=== PATIENT | female | born 1985 | race African-American/Black ===

== ENCOUNTER 2019-03-08 06:13 | Inpatient (IN) | payer OTHER ==
[2019-03-07 12:06] VITALS: BMI 18.2
[2019-03-08] MEDS ORDERED: BUPIVACAINE LIPOSOME/PF (EXPAREL) 266 MG/20 ML VIAL ONE (07:19)
[2019-03-08] MEDS ORDERED: BENZOIN/ALOE VERA/STORAX/TOLU 58 ML BOTTLE ONE (07:20)
[2019-03-08] MEDS ORDERED: BUPIVACAINE HCL/PF 0.25% (2.5MG/ML) 10 ML VIAL ONE (07:20)
[2019-03-08] MEDS ORDERED: THROMBIN (BOVINE) 5,000 UNIT VIAL TP ONE ×3 (07:20→09:57)
[2019-03-08] MEDS ORDERED: HEPARIN NA (PORCINE) 5,000 UNITS/ML 1ML VIAL ONE (07:24)
[2019-03-08] MEDS ORDERED: LIDOCAINE HCL/PF 2% SDV 5ML VIAL ONE (07:55)
[2019-03-08] MEDS ORDERED: ROCURONIUM BROMIDE 50 MG/5 ML SYRINGE ONE (07:55)
[2019-03-08] MEDS ORDERED: PROPOFOL 20 ML ONE ×13 (07:55→08:54)
[2019-03-08] MEDS ORDERED: ceFAZolin SODIUM 1 GM VIAL ONE ×2 (07:55→14:58)
[2019-03-08] MEDS ORDERED: morphine SULFATE/PF 0.5 MG/ML (2cc Syringe - QUVA) ONE (07:55)
[2019-03-08] MEDS ORDERED: MIDAZOLAM HCL 2 MG/2 ML SINGLE DOSE VIAL ONE (07:56)
[2019-03-08] MEDS ORDERED: VANCOMYCIN 1,000 MG VIAL (RESTRICTED TO ID ONLY) ONE (07:58)
[2019-03-08] MEDS ORDERED: TRANEXAMIC ACID 1000 MG/10 ML VIAL ONE ×2 (07:58→10:09)
[2019-03-08] MEDS ORDERED: FLU VACCINE QUAD 60 MCG/0.5 ML (MDV 19-20) IM ONE (08:00)
[2019-03-08] MEDS ORDERED: DEXAMETHASONE SOD PHOSPHATE 4 MG/1 ML VIAL ONE (08:05)
[2019-03-08] MEDS ORDERED: SUCCINYLCHOLINE CHLORIDE 200 MG/10 ML SYRINGE ONE (08:25)
[2019-03-08] MEDS ORDERED: ceFAZolin SODIUM 1 GM VIAL IVPB ONE (08:30)
[2019-03-08] MEDS ORDERED: VANCOMYCIN 1,000 MG VIAL (RESTRICTED TO ID ONLY) IVPB ONE (08:48)
[2019-03-08] MEDS ORDERED: ONDANSETRON 4 MG/2 ML VIAL ONE (09:53)
[2019-03-08] MEDS ORDERED: NEOSTIGMINE METHYLSULFATE 0.5 MG/1 ML - 10 ML MDV ONE (10:31)
[2019-03-08] MEDS ORDERED: BUPIVACAINE HCL/PF 0.5% (5 MG/ML) 30 ML VIAL IJ ONE (10:52)
[2019-03-08] MEDS ORDERED: BUPIVACAINE LIPOSOME/PF (EXPAREL) 266 MG/20 ML VIAL NR ONE (10:53)
[2019-03-08] MEDS ORDERED: MEPERIDINE HCL 25 MG/ML VIAL ONE (11:40)
[2019-03-08] MEDS ORDERED: ONDANSETRON 4 MG/2 ML VIAL IVPUSH PRN (12:13)
[2019-03-08] MEDS ORDERED: HYDROmorphone HCl 2 MG/ML VIAL IVPUSH ONE ×2 (12:30→12:50)
--- NOTE | 2019-03-08 12:31 | PN ---
Progress Note (short form) - Note Progress Note: 33F s/p removal of hardware L4-S1, inspection of fusion mass, L4-S1 revision laminectomies, L4-S1 posterior in situ spinal fusion POD #0. -Admit to ICU post-op. -Pain control: NO NSAID's; patient received intra-op paraspinal muscle block w/ Exparel; OK to use SNAKER DRIVING HORSES if needed; transition to oral analgesia post-op. -f/u Neurology rec's (Dr. Bradford) re: intra-op myoclonic jerks; ? obtain MRI brain? -DVT PPx: -Mechanical only: PAUL's, SCD's. -Chemical: None. -Incentive spirometry q15 min. -Advance diet as tolerated. -Castañeda care; d/c when ambulating. -Post-op Ancef x 3 doses. -PT/OT/Rehab, OOB. -WBAT B/L LE. -No bending, lifting (>5 lbs), or twisting for 9-12 months. -Care per ICU & medical hospitalist teams. -Discharge planning: f/u 7-10 days after discharge at [facility] [place] office; call for appointment; . -Will follow. Rc Matos MD (Orthopaedic Surgery).
--- NOTE | 2019-03-08 12:36 | OP ---
Operative Note - Note: Operative Date: 03/08/19 Pre-Operative Diagnosis: Symptomatic lumbar spinal hardware Operation: 1. Removal of lumbar spine hardware. 2. Inspection of fusion mass. 3. Revision laminectomies L4-S1. 4. Posterior arthrodesis L4-S1. 5. Bone autograft. 6. Bone allograft. 7. Bone marrow harvest. 8. Complex wound closure Post-Operative Diagnosis: Same as Pre-op Surgeon: Rc Matos Plant Electrical Engineer: Ismael Matos Anesthesiologist/ASSOCIATE TRAINER: Demetra Martinez Anesthesia: General Specimens Removed: L4-S1 hardware Estimated Blood Loss (mls): 200 Blood Volume Replaced (mls): 70 (Cell Saver) Fluid Volume Replaced (mls): 2,200 (Crystalloid) Operative Report Dictated: Yes
[2019-03-08] MEDS ORDERED: HYDROmorphone HCL CARPU-JECT 2 MG/1 ML DISP.SYRIN IVPB ONE (12:40)
[2019-03-08] MEDS ORDERED: ACETAMINOPHEN 1000 MG/100 ML VIAL (NON FORMULARY) IVPB PRN (12:41)
[2019-03-08] MEDS ORDERED: HYDROmorphone HCl 2 MG/ML VIAL ONE (12:46)
[2019-03-08] MEDS ORDERED: ACETAMINOPHEN 1000 MG/100 ML VIAL (NON FORMULARY) IVPB ONE (13:10)
--- NOTE | 2019-03-08 13:41 | OP ---
DATE OF OPERATION: DATE OF DICTATION: 03/08/2019 SURGEON: Rc Matos MD BILLING ANALYST: Ismael Matos MD PREOPERATIVE DIAGNOSIS: Recurrent radiculopathy due to stenosis L5-S1 with associated segmental instability and possible pseudoarthrosis. POSTOPERATIVE DIAGNOSIS: Spinal stenosis with failed hardware. OPERATIONS PERFORMED: 1. Removal of hardware, L4, 5, S1. 2. Inspection of fusion mass. 3. Revision laminectomy and neurolysis, L4, 5, S1 both left and right hand side. 4. Posterolateral arthrodesis, L4, 5, S1 left and right hand side. 5. Use of bone marrow aspirate and allograft graft. 6. Use of intraoperative neuromonitoring with intraoperative fluoroscopic evaluation. OPERATION IN DETAIL: Patient correctly identified. Brought to the operating room. Time-out was called. Patient placed prone on Aron table under general anesthesia. The low back was prepped, draped in a routine manner with Betadine scrub solution, wiped off with alcohol, DuraPrep applied. A window drape applied. Neuromonitoring preop sensory motor evoked potentials evaluated revealed good sensory and motor evoked readings from the neuromonitoring team. The concern was a diffuse myoclonic jerk-type reaction, which persisted for about 5 minutes. We thought this was due to temperature changes as the patient is lean. With appropriate warming and routine use of the Yina Hugger as well as the anesthesia and muscle relaxation, the myoclonic jerks disappeared. We went ahead with surgery as follows. Midline incision through the old original incisions. Dissection was taken through the skin, subcutaneous tissue. The subperiosteal dissection was taken right down the spinous process of the remaining spinous process of L3 as well as into the spinous process of S1. The CrossLinq was identified immediately, and this was followed laterally both left and right hand side to the rods. The CrossLinq was removed. The rods and tulips of the screws were dissected free of fibrous tissue. Using a Bovie, hemostasis was achieved as best we could. At that point, the hardware was removed entirely with the appropriate Rhythm [employer] instrumentation system. The fusion mass appeared flimsy both left and right hand side, although bone graft was present. There was no gross micromotion but micromotion noted particularly at L4-5. The entire theca was freed posteriorly using curettes along the inferior aspect of the lamina and along the wall of the vertebral canal. Enabled complete freeing of the elements. No neuromonitoring changes. No damage to the dura performed encountering this. What was thought to be fibrooseous material anteriorly was all soft tissue and left well alone. The cages had been inserted previously and were left well alone. An evaluation of the construct under x-ray revealed no changes, and we could not improve on the situation. Plan was to go ahead and with revision bone grafting to be performed in the posterolateral arthrodesis site both left and right hand side. Using bone marrow aspirate from the left posterior ilium through a Jamshidi needle, 60 mL were aspirated. This was mixed with a cortical bone graft matrix material, pure allograft prepared graft. The stem cell matrix was intercalated into the graft, left for a good 15-20 minutes, and by the time it was positioned into the posterolateral arthrodesis site, it was of a firm structure and easily malleable to provide excellent revision posterolateral arthrodesis accordingly. The wounds were thoroughly lavaged throughout the procedure. The wounds were closed as follows: Muscle 1 Vicryl, fascia 1 Vicryl, subcutaneous tissue 1 Vicryl, and skin 3-0 Monocryl with Steri-Strips. This, thus, completed a complex wound closure that is a 4-level closure from L3-S1 measuring approximately 15 cm. At the time of closure, the recurrence of the diffuse myoclonic jerks once again reared its head. We were not sure as to the causation of this as the patient is under deep general anesthesia. Appropriate analgesics were tested in terms of quantity given to the patient. Muscle relaxant was not instituted because she was going to be extubated, and postop neurological investigations will be started as soon as she is mobile and active accordingly. No drains inserted. Patient tolerated procedure well. Will be nursed in the ICU postoperatively. MD BRAYAN Jimenes/[id number]
--- NOTE | 2019-03-08 14:37 | HP ---
Admitting History and Physical - Admission Chief Complaint: S/p L L5-S1 spinal hardware removal History of Present Illness: 33 years old female no significant past medical history except chronic back pain for that underwent L5-S1 laminectomy with plating in November 2014 at [facility], patient remained symptomatic with the back painn, surgery evaluated today underwent removal of lumbar spine hardware with inspection of fusion mass, Revision laminectomies L4-S1, Posterior arthrodesis L4-S1, Bone autograft and complex wound closure, Medicine consult is called for postoperative management in ICU, I examined the patient and postoperative area, alert oriented x3 comfortable denies any complaint except right lower extremity numbness that is chronic moving all extremities. History Source: Patient - Past Medical History ...LMP: 03/01/19 ...LMP Comment: BC implant left arm - Past Surgical History Additional Past Surgical History: L5-S1 laminectomy and plate placement November 2014 at [facility] - Smoking History Smoking history: Never smoked Have you smoked in the past 12 months: No - Alcohol/Substance Use Hx Alcohol Use: No History of Substance Use: reports: Marijuana - Social History Usual Living Arrangement: Yes: Alone Home Medications - Allergies Allergies/Adverse Reactions: Allergies Allergy/AdvReac Type Severity Reaction Status Date / Time No Known Drug Allergies Allergy Verified 03/08/19 07:14 - Home Medications Home Medications: Ambulatory Orders Diazepam [Valium] 10 mg PO PRN PRN 03/07/19 Fluoxetine HCl [Prozac] 40 mg PO DAILY 03/07/19 Oxycodone HCl/Acetaminophen [Percocet 10-325 mg Tablet] 1 each PO PRN PRN Family Medical History Family History: Unremarkable Family Hx Cardiac Disorders: Mother, Father (Hypertension) Review of Systems - Review of Systems Constitutional: denies: Chills, Diaphoresis, Fever, Lethargy Eyes: denies: Blind Spots, Blurred Vision, Double Vision, Eye Pain HENT: denies: Difficult Swallowing, Ear Discharge, Ear Pain, Epistaxis Neck: denies: Decreased ROM, Lumps, Pain on Movement Cardiovascular: denies: Chest Pain, Edema, Palpitations Respiratory: denies: Cough, Exercise Intolerance, Hemoptysis Gastrointestinal: denies: Abdominal Pain, Bloating, Constipation Genitourinary: denies: Burning, Discharge, Dysuria Musculoskeletal: reports: Other (Back status post surgery) Integumentary: denies: Bruising, Change in Color Neurological: reports: Other (Right lower extremity numbness that is chronic). denies: Change in LOC, Change in Speech, Confusion Endocrine: denies: Excessive Sweating, Flushing, Increased Hunger Psychiatric: denies: Altered Sleep Pattern, Anxiety, Depression Physical Examination Vital Signs: Vital Signs Temperature 99 F 03/08/19 12:25 Pulse Rate 76 03/08/19 14:10 Respiratory Rate 19 03/08/19 14:10 Blood Pressure 103/83 03/08/19 14:10 O2 Sat by Pulse Oximetry (%) 100 03/08/19 14:10 General: Young female, HEENT; mucous membranes moist, no anemia, no jaundice, PERRLA, no nystagmus Neck: No JVD, supple, no bruit, thyroid palpably normal, normal carotid pulsations. Chest: Nontender, clear to auscultation bilaterally/bilateral wheezing/ bilateral basal rales. CVS: S1-S2 regular/ no murmur/gallop/rub Abdomen: Nondistended, soft, bowel sounds present. Extremities: Status post spinal surgery LEAN FACILITATOR: AO X3 , chronic right foot numbness, otherwise no new gross motor sensory deficit Problem List - Problems (1) Status post spinal surgery Assessment/Plan: Patient is postoperative removal of L5-S1 hardware with in inspection of fusion mass revision laminectomy L5-S1 and posterior arthrodesis L5-S1 with bone graft , postoperative management as per surgery team, pain control, input output chart , incentive spirometry, close observation . Code(s): Z98.890 - OTHER SPECIFIED POSTPROCEDURAL STATES
[2019-03-08] MEDS: CEFAZOLIN 1 GM/D5W 1 GM/50 ML BAG IVPB SCH (15:04)
[2019-03-08] MEDS: LACTATED RINGERS SOLUTION 1,000 ML IV SCH (16:30)
--- NOTE | 2019-03-08 18:39 | CONSULT ---
Consultation: REQUESTING PROVIDER: Dr Matos CONSULT REQUEST: We have been asked to medically evaluate this patient for post operative monitoring HISTORY OF PRESENT ILLNESS: 33 y/o female no significant past medical history except chronic back pain for which she underwent L5-S1 laminectomy with plating in November 2014 at [facility]. Despite intervention at the time, patient remained symptomatic with the back pain. surgery evaluated today underwent removal of lumbar spine hardware with inspection of fusion mass, Revision laminectomies L4-S1, Posterior arthrodesis L4-S1, Bone autograft and complex wound closure. Pt brought into ICU for post operative monitoring. Pt offered no complaints except for some numbness over the right ant leg and some back pain on movement. REVIEW OF SYSTEMS: CONSTITUTIONAL: Absent: fever, chills, diaphoresis, generalized weakness, malaise, loss of appetite, weight change HEENT: Absent: rhinorrhea, nasal congestion, throat pain, throat swelling, difficulty swallowing, mouth swelling, ear pain, eye pain, visual changes CARDIOVASCULAR: Absent: chest pain, syncope, palpitations, irregular heart rate, lightheadedness, peripheral edema RESPIRATORY: Absent: cough, shortness of breath, dyspnea with exertion, orthopnea, wheezing, stridor, hemoptysis GASTROINTESTINAL: Absent: abdominal pain, abdominal distension, nausea, vomiting, diarrhea, constipation, melena, hematochezia GENITOURINARY: Absent: dysuria, frequency, urgency, hesitancy, hematuria, flank pain, genital pain MUSCULOSKELETAL: back pain Absent: myalgia, arthralgia, joint swelling,neck pain SKIN: Absent: rash, itching, pallor HEMATOLOGIC/IMMUNOLOGIC: Absent: easy bleeding, easy bruising, lymphadenopathy, frequent infections ENDOCRINE: Absent: unexplained weight gain, unexplained weight loss, heat intolerance, cold intolerance NEUROLOGIC: paresthesias Absent: headache, focal weakness, dizziness, unsteady gait, seizure, mental status changes, bladder or bowel incontinence PSYCHIATRIC: Absent: anxiety, depression, suicidal or homicidal ideation, hallucinations. PHYSICAL EXAMINATION Vital Signs - 24 hr 03/08/19 03/08/19 03/08/19 07:04 07:10 12:25 Temperature 97.8 F 99 F Pulse Rate 84 100 H Respiratory 20 21 H Rate Blood Pressure 116/76 125/108 H O2 Sat by Pulse 98 100 Oximetry (%) 01/31/20 01/31/20 01/31/20 12:40 12:55 13:10 Temperature Pulse Rate 99 H 96 H 69 Respiratory 21 H 21 H 13 Rate Blood Pressure 102/70 94/58 L 92/55 L O2 Sat by Pulse 100 100 100 Oximetry (%) 03/08/19 03/08/19 03/08/19 13:25 13:40 13:55 Temperature Pulse Rate 69 65 84 Respiratory 14 12 20 Rate Blood Pressure 91/56 L 92/51 L 87/56 L O2 Sat by Pulse 100 100 100 Oximetry (%) 03/08/19 03/08/19 03/08/19 14:10 14:25 14:40 Temperature Pulse Rate 76 63 62 Respiratory 19 13 11 Rate Blood Pressure 103/83 95/59 L 96/59 L O2 Sat by Pulse 100 100 100 Oximetry (%) 03/08/19 03/08/19 03/08/19 14:55 15:10 15:25 Temperature Pulse Rate 65 68 61 Respiratory 20 14 12 Rate Blood Pressure 116/77 115/70 111/84 O2 Sat by Pulse 100 100 100 Oximetry (%) 03/08/19 03/08/19 03/08/19 15:40 15:55 15:59 Temperature 98.7 F Pulse Rate 63 64 66 Respiratory 18 12 16 Rate Blood Pressure 115/70 102/66 101/75 O2 Sat by Pulse 100 100 100 Oximetry (%) 03/08/19 03/08/19 16:23 16:49 Temperature 98.1 F Pulse Rate 88 Respiratory 16 Rate Blood Pressure 109/68 O2 Sat by Pulse 100 Oximetry (%) GENERAL: Awake, alert, and fully oriented, in no acute distress. HEAD: Normal with no signs of trauma. EYES: Pupils equal, round and reactive to light, extraocular movements intact, sclera anicteric, conjunctiva clear. No lid lag. EARS, NOSE, THROAT: oropharynx clear without exudates. Moist mucous membranes. NECK: Normal range of motion, supple without lymphadenopathy, JVD, or masses. LUNGS: Breath sounds equal, clear to auscultation bilaterally. No wheezes, and no crackles. No accessory muscle use. HEART: Regular rate and rhythm, normal S1 and S2 without murmur, rub or gallop. ABDOMEN: Soft, nontender, not distended, normoactive bowel sounds, no guarding, no rebound, no masses. No hepatomegaly or splenomegaly. MUSCULOSKELETAL: Normal range of motion at all joints. No bony deformities or tenderness. No CVA tenderness. UPPER EXTREMITIES: 2+ pulses, warm, well-perfused. No cyanosis. No clubbing. Cap refill <2 seconds. No peripheral edema. LOWER EXTREMITIES: 2+ pulses, warm, well-perfused. No calf tenderness. No peripheral edema. NEUROLOGICAL: Cranial nerves II-XII intact. Normal speech. motor strength 5/5 but limited due to back pain, sensation intact except in the ant right leg PSYCHIATRIC: Cooperative. Good eye contact. Appropriate mood and affect. SKIN: Warm, dry, normal turgor, no rashes or lesions noted. Laboratory Results - last 24 hr 03/08/19 03/08/19 03/08/19 06:33 06:33 07:45 Serum , Qual Negative Blood Type B NEGATIVE B NEGATIVE Antibody Screen Negative Active Medications Generic Name Dose Route Start Last Admin Trade Name Freq PRN Reason Stop Dose Admin Acetaminophen 1,000 mg 03/08/19 12:41 Ofirmev Injection - IVPB Q6H PRN FEVER Fluoxetine HCl 40 mg 03/09/19 10:00 Prozac - PO DAILY JOEY Hydromorphone HCl 2 mg 03/08/19 12:40 Dilaudid Injection - IVPB 03/09/19 12:39 Q4H PRN PAIN LEVEL 1-5 Hydromorphone HCl 0.5 mg 03/08/19 12:47 Dilaudid Vial - IVPUSH 03/09/19 12:46 [id number] PRN PAIN LEVEL 1-5 Lactated Ringer's 1,000 mls @ 125 mls/hr 03/08/19 12:15 03/08/19 16:30 Lactated Ringers Solution IV Not Given ASDIR JOEY Cefazolin Sodium 1 gm in 50 mls @ 100 mls/hr 03/08/19 14:00 03/08/19 15:04 Ancef 1 Gm Premixed Ivpb - IVPB 03/08/19 21:29 100 mls/hr Q6H-IV JOEY Administration Non-Formulary Medication 1 each 03/08/19 14:29 Oxycodone Hcl/Acetaminophen [Percocet 10-325 Mg Tablet] PO PRN PRN PAIN Ondansetron HCl 4 mg 03/08/19 12:13 Zofran Injection IVPUSH Q6H PRN NAUSEA AND/OR VOMITING Oxycodone HCl 5 mg 03/08/19 12:13 Roxicodone - PO Q4H PRN PAIN LEVEL 1-5 Oxycodone HCl 10 mg 03/08/19 12:13 Roxicodone - PO Q4H PRN PAIN LEVEL 6-10 ASSESSMENT/PLAN: 33F s/p removal of hardware L4-S1, inspection of fusion mass, L4-S1 revision laminectomies, L4-S1 posterior in situ spinal fusion POD #0. Neuro: - AAOx3 - s/p removal of hardware L4-S1, inspection of fusion mass, L4-S1 revision laminectomies, L4-S1 posterior in situ spinal fusion - Ortho surgery recs: Pain control: NO NSAID's; patient received intra-op paraspinal muscle block w/Exparel; OK to use RIGGER CHIEF if needed; transition to oral analgesia post-op. - f/u Neurology rec's (Dr. Bradford) for intra-op myoclonic jerks. obtain MRI brain? - No RIGGER CHIEF currently, on oxy 5mg Q4 for pain 1-5, oxy 10mg Q4h pain 6-10 - WBAT B/L LE. - monitor - Discharge planning: f/u 7-10 days after discharge at [facility] office; call for appointment; . No bending, lifting (>5 lbs), or twisting for 9-12 months. CV: - No baseline cardiac disease - no chest pain or dyspnea or SOB -Incentive spirometry q15 min. - Monitor Pulm: - no active issues - satting 100% on RA - monitor GI: - no active issues - pt tolerating regular diet - zofran PRN - monitor Renal: - no active issues - pt urinating through desir - per ortho : d/c when ambulating ID: - afebrile, Hemodynamically stable - Post-op Ancef x 3 doses. FEN: - No standing fluids. encourage oral intake - monitor lytes - regular diet DVT PPx: - Mechanical only: PAUL's, SCD's. - Chemical: None. Dispo:ICU care. Visit type - Emergency Visit Emergency Visit: Yes ED Registration Date: 03/08/19 Care time: The patient presented to the Emergency Department on the above date and was hospitalized for further evaluation of their emergent condition. - New Patient This patient is new to me today: No - Critical Care Critical Care patient: Yes Total Critical Care Time (in minutes): 36 Critical Care Statement: The care of this patient involved high complexity decision making to prevent further life threatening deterioration of the patient's condition and/or to evaluate & treat vital organ system(s) failure or risk of failure. ATTENDING PHYSICIAN STATEMENT I saw and evaluated the patient. I reviewed the resident's note and discussed the case with the resident. I agree with the resident's findings and plan as documented. SUBJECTIVE: OBJECTIVE: ASSESSMENT AND PLAN:
[2019-03-08] MEDS ORDERED: FLUoxetine HCL 20 MG CAPSULE PO ONE (22:30)
[2019-03-08] MEDS: oxyCODONE HCL 5 MG TABLET PO PRN (23:08)
[2019-03-09] MEDS ORDERED: CEFAZOLIN 2 GM in DEXTROSE 5%-WATER - 50 ML IVPB SCH (03:30)
[2019-03-09] MEDS ORDERED: CEFAZOLIN 1 GM in DEXTROSE 5%-WATER - 50 ML IVPB SCH (03:30)
[2019-03-09] MEDS ORDERED: ceFAZolin SODIUM 1 GM VIAL ONE ×2 (03:48→07:43)
[2019-03-09] MEDS ORDERED: DEXTROSE 5%-WATER - 50 ML IVPB ONE ×2 (03:49→07:43)
[2019-03-09] MEDS: CEFAZOLIN 1 GM in DEXTROSE 5%-WATER - 50 ML IVPB SCH ×2 (03:50→08:19)
[2019-03-09] MEDS: CEFAZOLIN 1 GM/D5W 1 GM/50 ML BAG IVPB SCH (03:52)
[2019-03-09] MEDS: LACTATED RINGERS SOLUTION 1,000 ML IV SCH ×2 (03:58→12:49)
[2019-03-09 07:17] LABS: HEMATOCRIT 27.3 % (32.4-45.2); HEMOGLOBIN 9.1 GM/dL (10.7-15.3); MCH 28.1 pg (25.7-33.7); MCHC 33.4 g/dl (32.0-36.0); MEAN CELL VOLUME 83.9 fl (80-96); PLATELET COUNT 156 K/MM3 (134-434); RBC 3.26 M/mm3 (3.60-5.2); RDW 12.9 % (11.6-15.6); WHITE BLOOD COUNT 9.5 K/mm3 (4.0-10.0)
[2019-03-09 07:47] LABS: CREATININE 0.5 mg/dL (0.55-1.3); POTASSIUM 3.8 mmol/L (3.5-5.1)
[2019-03-09] MEDS ORDERED: PT OWN MED DRAWER 7, Y5N ONE ×3 (07:49→21:22)
[2019-03-09] MEDS: oxyCODONE HCL 5 MG TABLET PO PRN ×3 (07:51→17:58)
[2019-03-09] MEDS ORDERED: POTASSIUM CHLORIDE TABS 10 MEQ TABLET.ER (FP) PO ONE (09:00)
--- NOTE | 2019-03-09 09:29 | PN ---
Progress Note (short form) - Note Progress Note: POD1 s/p removal of lumbar hardware/revision laminectomy L5-S1 under GA with intrathecal duramorph. Pt's pain increased overnight and received IV pain meds which helped significantly. Pt is now comfortable. VSS, no anesthetic issues/ complications noted
[2019-03-09] MEDS ORDERED: FLUoxetine HCL 20 MG CAPSULE PO SCH ×2 (10:00→22:00)
--- NOTE | 2019-03-09 10:52 | PN ---
Teaching Attending Note Name of Resident: Gisell Tolbert ATTENDING PHYSICIAN STATEMENT I saw and evaluated the patient. I reviewed the resident's note and discussed the case with the resident. I agree with the resident's findings and plan as documented. SUBJECTIVE: Pt seen and examined in the ICU. Pain relatively controlled. No fevers or chills. No nausea. No shortness of breath or chest pain. OBJECTIVE: Vital Signs Period Temp Pulse Resp BP Sys/Hines Pulse Ox Last 24 Hr 98.1 F-99 F 61-100 11-21 87-125/51-108 100-100 Intake & Output 03/06/19 03/07/19 03/08/19 03/09/19 23:59 23:59 23:59 23:59 Intake Total 3770 1200 Output Total 550 1600 Balance 3220 -400 Weight 54.431 kg Gen: NAD at rest Heart: RRR Lung: decreased breath sounds at the bases Abd: soft, nontender Ext: no edema CBC, BMP 03/09/19 05:40 03/09/19 05:40 Active Medications Acetaminophen (Ofirmev Injection -) 1,000 mg IVPB Q6H PRN PRN Reason: FEVER Last Admin: 03/09/19 07:56 Dose: 1,000 mg Fluoxetine HCl (Prozac -) 40 mg PO HS JOEY Lactated Ringer's (Lactated Ringers Solution) 1,000 mls @ 125 mls/hr IV ASDIR JOEY Last Admin: 03/09/19 03:58 Dose: 125 mls/hr Non-Formulary Medication (Oxycodone Hcl/Acetaminophen [Percocet 10-325 Mg Tablet ]) 1 each PO PRN PRN PRN Reason: PAIN Ondansetron HCl (Zofran Injection) 4 mg IVPUSH Q6H PRN PRN Reason: NAUSEA AND/OR VOMITING Oxycodone HCl (Roxicodone -) 5 mg PO Q4H PRN PRN Reason: PAIN LEVEL 1-5 Last Admin: 03/09/19 07:51 Dose: 5 mg Oxycodone HCl (Roxicodone -) 10 mg PO Q4H PRN PRN Reason: PAIN LEVEL 6-10 Last Admin: 03/08/19 23:08 Dose: 10 mg ASSESSMENT AND PLAN: Lumbar Spinal Stenosis s/p SABINE/Revision Laminectomies L4-S1/Posterior Arthrodesis L4-S1 Anemia - pain control - incentive spirometry - IVF - PO as tolerated - monitor H/H - DVT prophylaxis - disposition per surgery
--- NOTE | 2019-03-09 10:56 | PN ---
Physical Exam: SUBJECTIVE: Patient seen and examined at bedside. No acute events overnight. States that she still has pain upon movement. Cuauhtemoc PO diet, but has not yet passed flatus or had bowel movement. Denies weakness, tingling, paresthesias. OBJECTIVE: Vital Signs Period Temp Pulse Resp BP Sys/Hines Pulse Ox Last 24 Hr 98.1 F-99 F 61-100 11-21 87-125/51-108 100-100 GENERAL: Pleasant, well-appearing young female. AAOx3. NAD. Resting comfortably in bed. HEENT: AT/NC. EOMI. MMM. Facial muscles intact. NECK: Trachea midline, full range of motion, supple. LUNGS: CTA B/L. No wheezes or rales noted. Symmetric chest rise. HEART: RRR. Normal S1, S2. No murmurs noted. ABDOMEN: Soft, NT/ND. Normoactive bowel sounds. No rebound tenderness/guarding. : Castañeda in place draining clear, yellow urine. EXTREMITIES: 2+ pulses, warm, well-perfused, no edema. NEUROLOGICAL: Cranial nerves II through XII grossly intact. Normal speech, gait not observed. Motor strength 5/5 but limited due to back pain, sensation intact MSK: Lumbar dressing c/d/i. Limited ROM due to mild pain. PSYCH: Normal mood, normal affect. SKIN: Warm, dry, normal turgor, no rashes or lesions noted Laboratory Results - last 24 hr 03/09/19 03/09/19 05:40 05:40 WBC 9.5 RBC 3.26 L Hgb 9.1 L Hct 27.3 L MCV 83.9 MCH 28.1 MCHC 33.4 RDW 12.9 Plt Count 156 MPV 10.0 Sodium 138 Potassium 3.8 Chloride 105 Carbon Dioxide 29 Anion Gap 4 L BUN 9.0 Creatinine 0.5 L Est GFR (CKD-EPI)AfAm 146.35 Est GFR (CKD-EPI)NonAf 126.27 Random Glucose 99 Calcium 8.0 L Active Medications Acetaminophen (Ofirmev Injection -) 1,000 mg IVPB Q6H PRN PRN Reason: FEVER Last Admin: 03/09/19 07:56 Dose: 1,000 mg Fluoxetine HCl (Prozac -) 40 mg PO HS JOEY Lactated Ringer's (Lactated Ringers Solution) 1,000 mls @ 125 mls/hr IV ASDIR JOEY Last Admin: 03/09/19 03:58 Dose: 125 mls/hr Non-Formulary Medication (Oxycodone Hcl/Acetaminophen [Percocet 10-325 Mg Tablet]) 1 each PO PRN PRN PRN Reason: PAIN Ondansetron HCl (Zofran Injection) 4 mg IVPUSH Q6H PRN PRN Reason: NAUSEA AND/OR VOMITING Oxycodone HCl (Roxicodone -) 5 mg PO Q4H PRN PRN Reason: PAIN LEVEL 1-5 Last Admin: 03/09/19 07:51 Dose: 5 mg Oxycodone HCl (Roxicodone -) 10 mg PO Q4H PRN PRN Reason: PAIN LEVEL 6-10 Last Admin: 03/08/19 23:08 Dose: 10 mg ASSESSMENT/PLAN: 33F s/p removal of hardware L4-S1, inspection of fusion mass, L4-S1 revision laminectomies, L4-S1 posterior in situ spinal fusion POD #1. Neuro S/p Removal of hardware L4-S1, inspection of fusion mass, L4-S1 revision laminectomies, L4-S1 posterior in situ spinal fusion Chronic Back Pain -Stable, with mild pain that is well-controlled -Per ortho, NO NSAID's; patient received intra-op paraspinal muscle block w/ Exparel. Will defer neuro evaluation as an outpatient as discussed with Dr. Matos; no need for inpatient evaluation at this time -Cont Oxy 5mg Q4 for pain 1-5, Oxy 10mg Q4h pain 6-10 -PT WBAT B/L LE CV Stable, no acute cardiac issues at this time. Pulm Stable, no acute pulmonary issues at this time. -Satting at 96% on RA. -IS GI Stable, no acute GI issues at this time. -Tolerating regular diet -Has not yet passes flatus/BM; cont to monitor Renal Stable, no acute issues at this time. -Will d/c thang as patient is currently ambulating and was seen by PT ID No acute issues -Afebrile, Hemodynamically stable -Post-op Ancef x 3 doses. FEN -PO hydration -monitor lytes (K+) -regular diet Prophylaxis DVT: PAUL's, SCD's. Dispo -Cont ICU level of care -Discharge planning: f/u 7-10 days after discharge at [facility] office; call for appointment; . No bending, lifting (>5 lbs), or twisting for 9-12 months. Visit type - Emergency Visit Emergency Visit: Yes ED Registration Date: 03/08/19 Care time: The patient presented to the Emergency Department on the above date and was hospitalized for further evaluation of their emergent condition. - New Patient This patient is new to me today: Yes Date on this admission: 03/09/19 - Critical Care Critical Care patient: Yes Total Critical Care Time (in minutes): 36 Critical Care Statement: The care of this patient involved high complexity decision making to prevent further life threatening deterioration of the patient's condition and/or to evaluate & treat vital organ system(s) failure or risk of failure. ATTENDING PHYSICIAN STATEMENT I saw and evaluated the patient. I reviewed the resident's note and discussed the case with the resident. I agree with the resident's findings and plan as documented. SUBJECTIVE: OBJECTIVE: ASSESSMENT AND PLAN:
--- NOTE | 2019-03-09 11:34 | PN ---
Progress Note (short form) - Note Progress Note: POD #2 Apyrexial comfortable Left radiculpathic pain still present but less. Sitting in chair Walked in the hallway Vitals as per chart Wound dry Neuro at baseline PLAN Minimal activity Pain mx Review tomorrow
--- NOTE | 2019-03-09 12:35 | PN ---
Progress Note (short form) - Note Progress Note: Medical follow-up She is comfortable has no symptoms no fever no chills she is seen by the neurosurgeon this morning also occasional babysitter and she is out of the bed and sitting in the chair and eating food. She is comfortable has no back pain at this time. Vital Signs Period Temp Pulse Resp BP Sys/Hines Pulse Ox Last 24 Hr 98.1 F-98.7 F 61-99 11-21 87-116/51-84 100-100 Examination HEENT NAD lungs clear heart S1-S2 neuro she is alert awake oriented. Assessment plan 33-year-old female status post removal of hardware L4-S1 inspection of fusion mass, L4 S1 revision laminectomies, L4-S1 posterior incised spinal fusion postop day #1 Comfortable out of bed minimal activity neuro follow-up and pain management. Visit type - Emergency Visit Emergency Visit: Yes ED Registration Date: 03/08/19 Care time: The patient presented to the Emergency Department on the above date and was hospitalized for further evaluation of their emergent condition. - New Patient This patient is new to me today: Yes Date on this admission: 03/09/19 - Critical Care Critical Care patient: No - Discharge Referral Referred to [facility] Med P.C.: No
[2019-03-09] MEDS ORDERED: ACETAMINOPHEN 500 MG TABLET (FP) PO PRN (14:46)
[2019-03-10 07:21] LABS: BASO % 0.4 % (0-2.0); EOS % 0.2 % (0-4.5); HEMOGLOBIN 9.7 GM/dL (10.7-15.3); LYMPH % 13.6 % (8-40); MCH 28.2 pg (25.7-33.7); MCHC 33.3 g/dl (32.0-36.0); MEAN CELL VOLUME 84.6 fl (80-96); MEAN PLT VOLUME 9.5 fl (7.5-11.1); MONO % 9.7 % (3.8-10.2); NEUT % 76.1 % (42.8-82.8); PLATELET COUNT 153 K/MM3 (134-434); RBC 3.43 M/mm3 (3.60-5.2); RDW 13.2 % (11.6-15.6); WHITE BLOOD COUNT 8.6 K/mm3 (4.0-10.0)
--- NOTE | 2019-03-10 07:51 | PN ---
Physical Exam: SUBJECTIVE: Patient seen and examined this AM. No acute events overnight. Using Incentive spirometer. Pain most significant with movement. Still has not passed flatus or had BM but tolerating PO intake. No associated weakness, numbness, tingling. OBJECTIVE: Vital Signs Period Temp Pulse Resp BP Sys/Hines Pulse Ox Last 24 Hr 98.0 F-98.1 F 64-99 15-20 89-128/63-88 100-100 GENERAL: A&Ox3, NAD HEAD: NCAT EYES: PERRL, EOMI ENT: Moist mucous membranes NECK: Supple LUNGS: CTAB, no wheezes, no crackles HEART: Regular rate and rhythm, S1, S2 without murmur ABDOMEN: Soft, nontender, nondistended, + bowel sounds, no guarding EXTREMITIES: No edema. NEUROLOGICAL: Cranial nerves II through XII grossly intact. Normal speech, gait not observed. Muscle strength 5/5 throughout, gross sensation intact globally BACK: L-Spine dressing c/d/i SKIN: Warm, dry Laboratory Results - last 24 hr 03/09/19 03/09/19 03/10/19 05:40 05:40 06:38 WBC 9.5 8.6 RBC 3.26 L 3.43 L Hgb 9.1 L 9.7 L Hct 27.3 L 29.0 L MCV 83.9 84.6 MCH 28.1 28.2 MCHC 33.4 33.3 RDW 12.9 13.2 Plt Count 156 153 MPV 10.0 9.5 Absolute Neuts (auto) 6.5 Neutrophils % 76.1 Lymphocytes % 13.6 Monocytes % 9.7 Eosinophils % 0.2 Basophils % 0.4 Nucleated RBC % 0 Sodium 138 Potassium 3.8 Chloride 105 Carbon Dioxide 29 Anion Gap 4 L BUN 9.0 Creatinine 0.5 L Est GFR (CKD-EPI)AfAm 146.35 Est GFR (CKD-EPI)NonAf 126.27 Random Glucose 99 Calcium 8.0 L Active Medications Acetaminophen (Tylenol -) 1,000 mg PO Q6H PRN PRN Reason: FEVER Fluoxetine HCl (Prozac -) 40 mg PO HS JOEY Last Admin: 03/09/19 21:26 Dose: 40 mg Influenza Virus Vaccine Quadrival (Flulaval Quad ) 60 mcg IM .ONCE ONE Stop: 03/10/19 10:01 Non-Formulary Medication (Oxycodone Hcl/Acetaminophen [Percocet 10-325 Mg Tablet]) 1 each PO PRN PRN PRN Reason: PAIN Ondansetron HCl (Zofran Injection) 4 mg IVPUSH Q6H PRN PRN Reason: NAUSEA AND/OR VOMITING Oxycodone HCl (Roxicodone -) 5 mg PO Q4H PRN PRN Reason: PAIN LEVEL 1-5 Last Admin: 03/09/19 07:51 Dose: 5 mg Oxycodone HCl (Roxicodone -) 10 mg PO Q4H PRN PRN Reason: PAIN LEVEL 6-10 Last Admin: 03/09/19 17:58 Dose: 10 mg ASSESSMENT/PLAN: 33 y/o F with no significant PMHx admitted to ICU s/p removal of hardware L4-S1, inspection of fusion mass, L4-S1 revision laminectomies, L4-S1 posterior in situ spinal fusion on 03/08. #Neuro Chronic Back Pain now S/P Removal of hardware L4-S1, inspection of fusion mass, L4-S1 revision laminectomies, L4-S1 posterior in situ spinal fusion on 03/08 -Stable, No acute events overnight, tolerating diet despite no passing of flatus or having BM, VSS, H&H remains stable without leukocytosis, -Analgesia via Acetaminophen, Oxycodone; Controlled -Per ortho, NO NSAID's; patient received intra-op paraspinal muscle block w/ Exparel. Will defer neuro evaluation as an outpatient as discussed with Dr. Matos; no need for inpatient evaluation at this time -PT WBAT B/L LE, Walked 60ft yesterday -Wound care and dressing changes as per Ortho #CV Stable, no acute issues #Pulm -Stable, no acute issues -Continue incentive spirometer #GI -Stable, no acute issues -Tolerating PO Intake #Renal -Stable, no acute issues -Maddy d/c'ed on 03/09 #FEN -PO hydration -Replete PRN -Regular diet #PPx -DVT: SCD's Dispo: Transfer to med-surg Visit type - Emergency Visit Emergency Visit: No - New Patient This patient is new to me today: Yes Date on this admission: 03/10/19 - Critical Care Critical Care patient: Yes Total Critical Care Time (in minutes): 36 Critical Care Statement: The care of this patient involved high complexity decision making to prevent further life threatening deterioration of the patient's condition and/or to evaluate & treat vital organ system(s) failure or risk of failure. ATTENDING PHYSICIAN STATEMENT I saw and evaluated the patient. I reviewed the resident's note and discussed the case with the resident. I agree with the resident's findings and plan as documented. SUBJECTIVE: OBJECTIVE: ASSESSMENT AND PLAN:
[2019-03-10 07:52] LABS: ALBUMIN 3.4 g/dl (3.4-5.0); BLOOD UREA NITROGEN 3.2 mg/dL (7-18); CALCIUM 8.2 mg/dL (8.5-10.1); CREATININE 0.5 mg/dL (0.55-1.3); MAGNESIUM 1.9 mg/dL (1.8-2.4); PHOSPHOROUS 3.5 mg/dL (2.5-4.9); TOT PROT 6.1 g/dl (6.4-8.2)
[2019-03-10] MEDS: oxyCODONE HCL 5 MG TABLET PO PRN ×2 (07:57→07:59)
[2019-03-10 08:27] LABS: BILIRUBIN,TOTAL 0.4 mg/dL (0.2-1)
[2019-03-10] MEDS ORDERED: FLU VACCINE QUAD 60 MCG/0.5 ML (MDV 19-20) IM ONE (10:00)
--- NOTE | 2019-03-10 10:12 | PN ---
Teaching Attending Note Name of Resident: Mare Powell ATTENDING PHYSICIAN STATEMENT I saw and evaluated the patient. I reviewed the resident's note and discussed the case with the resident. I agree with the resident's findings and plan as documented. SUBJECTIVE: Pt seen and examined in the ICU. Pain relatively controlled. No fevers or chills. No flatus yet. No nausea. OBJECTIVE: Vital Signs Period Temp Pulse Resp BP Sys/Hines Pulse Ox Last 24 Hr 98.0 F-99.2 F 66-99 16-20 89-128/64-88 100-100 Intake & Output 03/07/19 03/08/19 03/09/19 03/10/19 23:59 23:59 23:59 23:59 Intake Total 3770 1700 Output Total 550 2100 Balance 3220 -400 Weight 54.431 kg Gen: NAD at rest Heart: RRR Lung: decreased breath sounds at the bases Abd: soft, nontender Ext: no edema CBC, BMP 03/10/19 06:38 03/10/19 06:38 Active Medications Acetaminophen (Tylenol -) 1,000 mg PO Q6H PRN PRN Reason: FEVER Fluoxetine HCl (Prozac -) 40 mg PO HS JOEY Last Admin: 03/09/19 21:26 Dose: 40 mg Non-Formulary Medication (Oxycodone Hcl/Acetaminophen [Percocet 10-325 Mg Tablet ]) 1 each PO PRN PRN PRN Reason: PAIN Ondansetron HCl (Zofran Injection) 4 mg IVPUSH Q6H PRN PRN Reason: NAUSEA AND/OR VOMITING Oxycodone HCl (Roxicodone -) 5 mg PO Q4H PRN PRN Reason: PAIN LEVEL 1-5 Last Admin: 03/09/19 07:51 Dose: 5 mg Oxycodone HCl (Roxicodone -) 10 mg PO Q4H PRN PRN Reason: PAIN LEVEL 6-10 Last Admin: 03/10/19 07:59 Dose: 10 mg ASSESSMENT AND PLAN: Symptomatic Lumbar Spinal Hardware s/p SABINE/Revision Laminectomies L4-S1/Posterior Arthrodesis L4-S1 Anemia - pain control - incentive spirometry - PO as tolerated - monitor H/H - DVT prophylaxis - can monitor on floor
--- NOTE | 2019-03-10 11:22 | PN ---
Progress Note (short form) - Note Progress Note: Medical follow-up She is comfortable has no symptoms no fever no chills much less pain from yesterday out of bed sitting comfortably eating no new symptoms. Vital Signs Period Temp Pulse Resp BP Sys/Hines Pulse Ox Last 24 Hr 98.0 F-99.2 F 66-99 16-20 89-128/64-88 100-100 Examination HEENT NAD lungs clear heart S1-S2 neuro she is alert awake oriented. Assessment plan 33-year-old female status post removal of hardware L4-S1 inspection of fusion mass, L4 S1 revision laminectomies, L4-S1 posterior incised spinal fusion postop day #2 Comfortable out of bed minimal activity neuro follow-up and pain management Other management as per neurosurgery. Visit type - Emergency Visit Emergency Visit: Yes ED Registration Date: 03/08/19 Care time: The patient presented to the Emergency Department on the above date and was hospitalized for further evaluation of their emergent condition. - New Patient This patient is new to me today: No - Critical Care Critical Care patient: No - Discharge Referral Referred to [facility] Med P.C.: No
[2019-03-10] MEDS: KETOROLAC TROMETHAMINE 30 MG/1 ML VIAL IM SCH ×2 (11:57→22:09)
[2019-03-10] MEDS ORDERED: ONDANSETRON 4 MG/2 ML VIAL IVPUSH PRN (14:37)
[2019-03-10] MEDS ORDERED: ACETAMINOPHEN 500 MG TABLET (FP) PO PRN (14:37)
[2019-03-10] MEDS ORDERED: oxyCODONE HCL 5 MG TABLET PO PRN (14:37)
[2019-03-10] MEDS: CEFAZOLIN 1 GM/D5W 1 GM/50 ML BAG IVPB SCH (16:26)
[2019-03-10] MEDS ORDERED: PT OWN MED DRAWER 7, Y5N ONE ×2 (19:37→22:07)
[2019-03-10] MEDS: FLUoxetine HCL 20 MG CAPSULE PO SCH (22:10)
[2019-03-11] MEDS: HEPARIN NA (PORCINE) 5,000 UNITS/ML 1ML VIAL SQ SCH ×2 (10:42→21:19)
[2019-03-11] MEDS ORDERED: FLU VACCINE QUAD 60 MCG/0.5 ML (MDV 19-20) IM ONE (11:00)
[2019-03-11] MEDS: oxyCODONE HCL 5 MG TABLET PO PRN ×2 (12:07→21:23)
--- NOTE | 2019-03-11 14:04 | PN ---
Physical Exam: SUBJECTIVE: Patient seen and examined. Offers no complaints. Pain controlled per patient. Passed gas but has not had a BM yet OBJECTIVE: Vital Signs Period Temp Pulse Resp BP Sys/Hines Pulse Ox Last 24 Hr 97.9 F-100.2 F 67-105 17-19 111-120/66-83 100-100 GENERAL: a/o x 3, comfortable HEAD: Normal with no signs of trauma. EYES: PERRL, extraocular movements intact ENT: oropharynx clear without exudates, moist mucous membranes. NECK: supple. LUNGS: Breath sounds equal, clear to auscultation bilaterally, no wheezes, no crackles, no accessory muscle use. HEART: Regular rate and rhythm, S1, S2 without murmur, rub or gallop. ABDOMEN: Soft, nontender, nondistended, normoactive bowel sounds EXTREMITIES: 2+ pulses, no edema. NEUROLOGICAL: Cranial nerves II through XII grossly intact. BACK: L-Spine dressing c/d/i Active Medications Generic Name Dose Route Start Last Admin Trade Name Freq PRN Reason Stop Dose Admin Acetaminophen 1,000 mg 03/10/19 14:37 Tylenol - PO Q6H PRN FEVER Fluoxetine HCl 40 mg 03/10/19 22:00 03/10/19 22:10 Prozac - PO 40 mg HS JOEY Administration Heparin Sodium (Porcine) 5,000 unit 03/11/19 10:00 03/11/19 10:42 Heparin - SQ 5,000 unit BID JOEY Administration Ondansetron HCl 4 mg 03/10/19 14:37 Zofran Injection IVPUSH Q6H PRN NAUSEA AND/OR VOMITING Oxycodone HCl 5 mg 03/10/19 14:37 Roxicodone - PO Q4H PRN PAIN LEVEL 1-5 Oxycodone HCl 10 mg 03/10/19 14:37 03/11/19 12:07 Roxicodone - PO 10 mg Q4H PRN Administration PAIN LEVEL 6-10 Polyethylene Glycol 17 gm 03/11/19 14:00 Miralax (For Daily Use) - PO BID [facility] ASSESSMENT/PLAN: 33 y/o F with no significant PMHx admitted to ICU s/p removal of hardware L4-S1 , inspection of fusion mass, L4-S1 revision laminectomies, L4-S1 posterior in situ spinal fusion on 03/08. #S/P Removal of hardware L4-S1, inspection of fusion mass, L4-S1 revision laminectomies, L4-S1 posterior in situ spinal fusion on 03/08 -tolerating diet , passing flatus, no BM yet -start miralax bid -Analgesia via Acetaminophen, Oxycodone; Controlled -PT WBAT -Wound care and dressing changes as per Ortho -incentive spirometer -will discuss plan with ortho #FEN -PO hydration -Replete PRN -Regular diet #PPx -DVT: hep sq Visit type - Emergency Visit Emergency Visit: Yes ED Registration Date: 03/08/19 Care time: The patient presented to the Emergency Department on the above date and was hospitalized for further evaluation of their emergent condition. - New Patient This patient is new to me today: Yes Date on this admission: 03/11/19 - Critical Care Critical Care patient: No ATTENDING PHYSICIAN STATEMENT I saw and evaluated the patient. I reviewed the resident's note and discussed the case with the resident. I agree with the resident's findings and plan as documented. SUBJECTIVE: OBJECTIVE: ASSESSMENT AND PLAN:
[2019-03-11] MEDS: POLYETHYLENE GLYCOL 3350 119 GM BTL PO SCH ×2 (14:15→23:50)
--- NOTE | 2019-03-11 15:55 | PN ---
Teaching Attending Note Name of Resident: Sally Ward ATTENDING PHYSICIAN STATEMENT I saw and evaluated the patient. I reviewed the resident's note and discussed the case with the resident. I agree with the resident's findings and plan as documented. 33 y/o F with no significant PMHx admitted to ICU s/p removal of hardware L4-S1 , inspection of fusion mass, L4-S1 revision laminectomies, L4-S1 posterior in situ spinal fusion on 03/08. Doing well today, tolerating PO, ambulatory, VSS, denies any complaints, await dispo from Surgery team. GENERAL: a/o x 3, comfortable, sitting up in bed eating breakfast HEAD: Normal with no signs of trauma. EYES: PERRL, extraocular movements intact ENT: oropharynx clear without exudates, moist mucous membranes. NECK: supple. LUNGS: Breath sounds equal, clear to auscultation bilaterally, no wheezes, no crackles, no accessory muscle use. HEART: Regular rate and rhythm, S1, S2 without murmur, rub or gallop. ABDOMEN: Soft, nontender, nondistended, normoactive bowel sounds EXTREMITIES: 2+ pulses, no edema. NEUROLOGICAL: Cranial nerves II through XII grossly intact. Vital Signs - 24 hr 03/10/19 03/10/19 03/11/19 19:00 21:00 02:00 Temperature 99 F 100.2 F H Pulse Rate 74 70 Respiratory 17 18 Rate Blood Pressure 120/78 114/73 O2 Sat by Pulse 100 Oximetry (%) 03/11/19 03/11/19 03/11/19 06:00 09:00 10:00 Temperature 98.8 F 97.9 F Pulse Rate 67 105 H Respiratory 18 18 18 Rate Blood Pressure 115/70 111/83 O2 Sat by Pulse 100 Oximetry (%) 03/11/19 14:00 Temperature 98.3 F Pulse Rate 90 Respiratory 18 Rate Blood Pressure 110/75 O2 Sat by Pulse Oximetry (%) Current Medications Generic Name Dose Route Start Last Admin Trade Name Freq PRN Reason Stop Dose Admin Acetaminophen 1,000 mg 03/10/19 14:37 Tylenol - PO Q6H PRN FEVER Fluoxetine HCl 40 mg 03/10/19 22:00 03/10/19 22:10 Prozac - PO 40 mg HS JOEY Administration Heparin Sodium (Porcine) 5,000 unit 03/11/19 10:00 03/11/19 10:42 Heparin - SQ 5,000 unit BID JOEY Administration Ondansetron HCl 4 mg 03/10/19 14:37 Zofran Injection IVPUSH Q6H PRN NAUSEA AND/OR VOMITING Oxycodone HCl 5 mg 03/10/19 14:37 Roxicodone - PO Q4H PRN PAIN LEVEL 1-5 Oxycodone HCl 10 mg 03/10/19 14:37 03/11/19 12:07 Roxicodone - PO 10 mg Q4H PRN Administration PAIN LEVEL 6-10 Polyethylene Glycol 17 gm 03/11/19 14:00 03/11/19 14:15 Miralax (For Daily Use) - PO 17 gm BID JOEY Administration 33 y/o F with no significant PMHx admitted to ICU s/p removal of hardware L4-S1 , inspection of fusion mass, L4-S1 revision laminectomies, L4-S1 posterior in situ spinal fusion on 03/08. #S/P Removal of hardware L4-S1, inspection of fusion mass, L4-S1 revision laminectomies, L4-S1 posterior in situ spinal fusion on 03/08 tolerating diet , passing flatus, no BM yet increase bowel regimen to achieve 1-2 BM/day Analgesia via Acetaminophen, Oxycodone; Controlled PT WBAT Wound care and dressing changes as per Ortho ncentive spirometer follow up with Ortho for dispo plan #FEN PO hydration Replete PRN Regular diet #PPx DVT: hep sq
[2019-03-11 16:32] LABS: BASO % 0.6 % (0-2.0); EOS % 0.5 % (0-4.5); HEMATOCRIT 32.8 % (32.4-45.2); HEMOGLOBIN 10.8 GM/dL (10.7-15.3); LYMPH % 22.6 % (8-40); MCH 28.2 pg (25.7-33.7); MCHC 32.9 g/dl (32.0-36.0); MEAN CELL VOLUME 85.6 fl (80-96); MEAN PLT VOLUME 10.5 fl (7.5-11.1); MONO % 7.3 % (3.8-10.2); PLATELET COUNT 197 K/MM3 (134-434); RBC 3.83 M/mm3 (3.60-5.2); RDW 13.1 % (11.6-15.6); WHITE BLOOD COUNT 8.8 K/mm3 (4.0-10.0)
[2019-03-11 17:05] LABS: ALBUMIN 3.7 g/dl (3.4-5.0); BILIRUBIN,TOTAL 0.6 mg/dL (0.2-1); BLOOD UREA NITROGEN 8.6 mg/dL (7-18); CALCIUM 9.2 mg/dL (8.5-10.1); CREATININE 0.5 mg/dL (0.55-1.3); POTASSIUM 3.9 mmol/L (3.5-5.1); TOT PROT 7.2 g/dl (6.4-8.2)
--- NOTE | 2019-03-11 17:18 | PATH ---
Surgical Pathology Report Patient Name: TANISHA OTERO Med. Rec. #: [id number] /Age/Gender: 1985 (Age: 33) / F Account: [id number] Location: [address] [place] [address]/[facility] Taken: 03/08/2019 Received: 03/08/2019 Reported: 03/11/2019 Physicians: Rc Matos M.D. Specimen(s) Received HARDWARE Clinical History Radiculopathy lumbar region Final Diagnosis REMOVED HARDWARE: CONSISTENT WITH HARDWARE. GROSS EXAMINATION ONLY. Electronically Signed Sunny Koo M.D. Gross Description Received fresh labeled "removed hardware," is a 7.7 x 1.0 x 0.8 cm yellow metallic portion of hardware. Also received within the same container are 2 chamberlain metallic bent rods averaging 6.5 cm in length. There are also 11 metallic screws present ranging from 0.4-5.5 cm in length. No soft tissue is present. No sections are submitted, gross only. /03/08/2019 saudi/03/08/2019
[2019-03-11] MEDS ORDERED: PT OWN MED DRAWER 7, Y5N ONE (20:51)
[2019-03-11] MEDS: FLUoxetine HCL 20 MG CAPSULE PO SCH (21:21)
[2019-03-12] MEDS: HEPARIN NA (PORCINE) 5,000 UNITS/ML 1ML VIAL SQ SCH ×2 (10:37→22:09)
[2019-03-12] MEDS: oxyCODONE HCL 5 MG TABLET PO PRN ×2 (10:37→17:10)
[2019-03-12] MEDS: POLYETHYLENE GLYCOL 3350 119 GM BTL PO SCH ×2 (10:37→22:07)
--- NOTE | 2019-03-12 15:31 | DS ---
Physical Exam: SUBJECTIVE: Patient seen and examined. Offers no complaints. Pain controlled per patient. OBJECTIVE: Vital Signs Period Temp Pulse Resp BP Sys/Hines Pulse Ox Last 24 Hr 98.7 F-98.8 F 79-91 18-18 98-111/65-74 99 PHYSICAL EXAM GENERAL: a/o x 3, comfortable HEAD: Normal with no signs of trauma. EYES: PERRL, extraocular movements intact ENT: oropharynx clear without exudates, moist mucous membranes. NECK: supple. LUNGS: Breath sounds equal, clear to auscultation bilaterally, no wheezes, no crackles, no accessory muscle use. HEART: Regular rate and rhythm, S1, S2 without murmur, rub or gallop. ABDOMEN: Soft, nontender, nondistended, normoactive bowel sounds EXTREMITIES: 2+ pulses, no edema. NEUROLOGICAL: Cranial nerves II through XII grossly intact. BACK: L-Spine dressing c/d/i LABS Laboratory Results - last 24 hr 03/11/19 03/11/19 15:10 15:10 WBC 8.8 RBC 3.83 Hgb 10.8 Hct 32.8 MCV 85.6 MCH 28.2 MCHC 32.9 RDW 13.1 Plt Count 197 D MPV 10.5 D Absolute Neuts (auto) 6.1 Neutrophils % 69.0 Lymphocytes % 22.6 D Monocytes % 7.3 Eosinophils % 0.5 D Basophils % 0.6 Nucleated RBC % 0 Sodium 142 Potassium 3.9 Chloride 107 Carbon Dioxide 29 Anion Gap 6 L BUN 8.6 Creatinine 0.5 L Est GFR (CKD-EPI)AfAm 146.35 Est GFR (CKD-EPI)NonAf 126.27 Random Glucose 78 Calcium 9.2 Total Bilirubin 0.6 AST 29 ALT 26 Alkaline Phosphatase 65 Total Protein 7.2 Albumin 3.7 HOSPITAL COURSE: Date of Admission:03/08/19 33 y/o F with no significant PMHx admitted to ICU s/p removal of hardware L4-S1 , inspection of fusion mass, L4-S1 revision laminectomies, L4-S1 posterior in situ spinal fusion on 03/08. #S/P Removal of hardware L4-S1, inspection of fusion mass, L4-S1 revision laminectomies, L4-S1 posterior in situ spinal fusion on 03/08 tolerating diet , passing flatus, no BM yet increase bowel regimen to achieve 1-2 BM/day Analgesia via Acetaminophen, Oxycodone; Controlled Wound care and dressing changes as per Ortho incentive spirometer follow up with Ortho for dispo plan PT/OT/Rehab, OOB. WBAT B/L LE. No bending, lifting (>5 lbs), or twisting for 9-12 months. Care per ICU & medical hospitalist teams. Discharge planning: f/u 7-10 days after discharge at [facility] office; call for appointment; . will be discharged to [facility] for rehab. Date of Discharge: 03/12/19 Minutes to complete discharge: 35 Discharge Summary Problems reviewed: Yes Reason For Visit: RADICULOPATHY, LUMBAR REGION Current Active Problems Status post spinal surgery (Acute) Condition: Stable - Instructions Diet, Activity, Other Instructions: You are being discharged to a assisted facility for rehab. No bending, lifting (>5 lbs), or twisting for 9-12 months. Follow up in 7-10 days after discharge at [facility] office; call for appointment; . Referrals: Rc Matos MD [Staff Physician] - Disposition: CARE HOME FACILITY - Home Medications Comprehensive Discharge Medication List: Ambulatory Orders Fluoxetine HCl [Prozac] 40 mg PO DAILY 03/07/19 Polyethylene Glycol 3350 [Miralax 119 gm Btl -] 17 gm PO BID bottle 03/12/19 oxyCODONE HCL [Roxicodone -] 5 mg PO Q4H PRN tablet MDD 20 03/12/19 oxyCODONE HCL [Roxicodone -] 10 mg PO Q4H PRN tablet MDD 60 03/12/19 This patient is new to me today: Yes Date on this admission: 03/12/19 Emergency Visit: Yes ED Registration Date: 03/08/19 Care time: The patient presented to the Emergency Department on the above date and was hospitalized for further evaluation of their emergent condition. Critical Care patient: No - Discharge Referral Referred to [facility] Med P.C.: No ATTENDING PHYSICIAN STATEMENT I saw and evaluated the patient. I reviewed the resident's note and discussed the case with the resident. I agree with the resident's findings and plan as documented. SUBJECTIVE: OBJECTIVE: ASSESSMENT AND PLAN:
--- NOTE | 2019-03-12 17:32 | PN ---
Teaching Attending Note Name of Resident: Sally Ward ATTENDING PHYSICIAN STATEMENT I saw and evaluated the patient. I reviewed the resident's note and discussed the case with the resident. I agree with the resident's findings and plan as documented. SUBJECTIVE: seen and examined, no complaints, feeling well OBJECTIVE: Vital Signs - 24 hr 03/11/19 03/11/19 03/11/19 18:00 20:00 21:00 Temperature 98.8 F 98.7 F Pulse Rate 91 H 90 Respiratory 18 18 Rate Blood Pressure 106/68 111/74 O2 Sat by Pulse 99 Oximetry (%) 03/12/19 03/12/19 06:00 14:00 Temperature 98.7 F 98.7 F Pulse Rate 79 85 Respiratory 18 18 Rate Blood Pressure 98/65 106/74 O2 Sat by Pulse Oximetry (%) PE: GENERAL: NAD LUNGS: CTA bl, no wrr, unlabored HEART: rrr, s1s2, no mrg ABDOMEN: soft ntnd nabs EXTREMITIES: 2+ pulses, no edema Current Medications Acetaminophen (Tylenol -) 1,000 mg PO Q6H PRN PRN Reason: FEVER Fluoxetine HCl (Prozac -) 40 mg PO HS [facility] Last Admin: 03/11/19 21:21 Dose: 40 mg Heparin Sodium (Porcine) (Heparin -) 5,000 unit SQ BID [facility] Last Admin: 03/12/19 10:37 Dose: 5,000 unit Ondansetron HCl (Zofran Injection) 4 mg IVPUSH Q6H PRN PRN Reason: NAUSEA AND/OR VOMITING Oxycodone HCl (Roxicodone -) 5 mg PO Q4H PRN PRN Reason: PAIN LEVEL 1-5 Oxycodone HCl (Roxicodone -) 10 mg PO Q4H PRN PRN Reason: PAIN LEVEL 6-10 Last Admin: 03/12/19 17:10 Dose: 10 mg Polyethylene Glycol (Miralax (For Daily Use) -) 17 gm PO BID [facility] Last Admin: 03/12/19 10:37 Dose: 17 gm ASSESSMENT AND PLAN: 33 y/o F with no significant PMHx admitted to ICU s/p removal of hardware L4-S1 , inspection of fusion mass, L4-S1 revision laminectomies, L4-S1 posterior in situ spinal fusion on 03/08. 1) #S/P Removal of hardware L4-S1, inspection of fusion mass, L4-S1 revision laminectomies, L4-S1 posterior in situ spinal fusion on 03/08 -pain controlled -transfer to [facility] -wound care -bowel regimen -incentive spirometer -stable for transfer
[2019-03-12] MEDS: FLUoxetine HCL 20 MG CAPSULE PO SCH (22:06)
[2019-03-13 09:54] VITALS: BP 125/65; PULSE 100; TEMP 98.7
[2019-03-13] MEDS: HEPARIN NA (PORCINE) 5,000 UNITS/ML 1ML VIAL SQ SCH (10:00)
[2019-03-13] MEDS: POLYETHYLENE GLYCOL 3350 119 GM BTL PO SCH (10:06)
[2019-03-13] MEDS ORDERED: oxyCODONE HCL 5 MG TABLET PO ONE (11:42)
== END 2019-03-13 15:38 | DRG 304 ==
LOC: JSAMEDAYSX 06:13 → JICU 16:45 → J5S 03-10 14:40
PROVIDERS: ADMIT Internal Medicine; ATTEND Internal Medicine
PROC: 0SP30AZ Removal of Interbody Fusion Device from Lumbosacral Joint, Open Approach (ICD-10-PCS; principal; 2019-03-10)
PROC: 0SG0071 Fusion of Lumbar Vertebral Joint with Autologous Tissue Substitute, Posterior Approach, Posterior Column, Open Approach (ICD-10-PCS; 2019-03-10)
PROC: 0SG3071 Fusion of Lumbosacral Joint with Autologous Tissue Substitute, Posterior Approach, Posterior Column, Open Approach (ICD-10-PCS; 2019-03-10)
PROC: 07DR0ZZ Extraction of Iliac Bone Marrow, Open Approach (ICD-10-PCS; 2019-03-10)
PROC: 4A1004G Monitoring of Central Nervous Electrical Activity, Intraoperative, Open Approach (ICD-10-PCS; 2019-03-10)
DX: M48.061 Spinal stenosis, lumbar region without neurogenic claudication (principal); T85.898A Other specified complication of other internal prosthetic devices, implants and grafts, initial encounter; D64.9 Anemia, unspecified; Y83.9 Surgical procedure, unspecified as the cause of abnormal reaction of the patient, or of later complication, without mention of misadventure at the time of the procedure; M54.16 Radiculopathy, lumbar region; M54.17 Radiculopathy, lumbosacral region
CPT/HCPCS: 36415; 76000-TC-FY; 80048; 80053; 83735; 84100; 84703; 85025; 85027; 86850; 86900; 86901; 88300-TC; 94010; 94760; 97116-GP; 97162-GP; J0131; J1644; Q2036